=== PATIENT | female | born 1965 | race Caucasian/White ===

== ENCOUNTER 2016-09-18 16:00 | Emergency (ER) | payer SELFPAY ==
[~2016-09-18] VITALS: Ht 160 cm; Wt 60.5 kg
[~2016-09-18 16:00] MED LIST: ACET-1256 PO; DOXY100T17 PO; IBUP-103 PO
[2016-09-18 16:16] VITALS: TEMP 36.3; Ht 160 cm; Wt 60.5 kg
--- NOTE | 2016-09-18 17:16 | DIAGNOSTIC IMAGING REPORT ---
PELVIS/BILATERAL HIP 2 VIEWS CLINICAL HISTORY: B/L hip pain pain COMPARISON STUDY: None FINDINGS: Negative study IMPRESSION: Negative study The above report was generated using voice recognition software. It may contain grammatical, syntax or spelling errors. Electronically signed by: Jose E Wiseman M.D. 09/18/2016 5:15 PM Dictated Date/Time: 09/18/2016 5:14 PM
[2016-09-18] MEDS ORDERED: CYCL10TA6 PO (17:30)
[2016-09-18] MEDS ORDERED: PRED20TA2 PO (17:30)
[2016-09-18 17:45] VITALS: BP 118/71; PULSE 64; O2SAT 100
[2016-09-18] MEDS ORDERED: FLEXERIL HOME PACK 10 MG VIAL PO ONE (17:45)
--- NOTE | 2016-09-18 23:18 | EMERGENCY ROOM VISIT NOTE ---
History First contact with patient: 16:21 Chief Complaint: HIP PAIN Stated Complaint: B/L HIP PAIN History of Present Illness The patient is a 50 year old female who presents to the Emergency Room with complaints of bilateral hip pain worsening over the past few days. She does not recall injury or trauma. The patient has had symptoms like this before and is taking pxhq-ukf-egajhme ibuprofen without significant improvement of symptoms. She is able to ambulate. She is not having difficulty using the bathroom. No saddle paresthesias. She rates her discomfort a 6/10. Review of Systems More than 10 systems were reviewed and otherwise negative with the exception of history of present illness. Past Medical/Surgical History Medical Problems: (1) Fibromyalgia Family History No pertinent family history Social History Smoking Status: Current Every Day Smoker Housing Status: lives with family Occupation Status: employed Current/Historical Medications Scheduled Cyclobenzaprine Hcl (Flexeril), 10 MG PO TID Prednisone (Prednisone Tab), 2 TAB PO DAILY Scheduled PRN Acetaminophen (Tylenol), 1,000 MG PO Q6 PRN for Pain Ibuprofen Tab (Advil), 400 MG PO QID PRN for Pain Physical Exam Vital Signs Date Time Temp Pulse Resp B/P (MAP) Pulse Ox O2 Delivery O2 Flow Rate FiO2 09/18/16 17:45 64 16 118/71 100 09/18/16 16:16 36.3 76 18 131/64 98 Room Air Pain Rating (0-10): 9.0 Physical Exam VITALS: Vitals are noted on the nurse's note and reviewed by myself. Vital signs stable. GENERAL: Well-developed, well-nourished, white female, who is in no acute distress and resting comfortably. Patient is cooperative with the examination. HEAD: Normocephalic atraumatic. NECK: Supple without nuchal rigidity. No lymphadenopathy. No thyromegaly. Cervical spine is nontender. HEART: Regular rate and rhythm without murmurs gallops or rubs. LUNGS: Clear to auscultation bilaterally without wheezes, rales or rhonchi. No retractions or accessory muscle use. ABDOMEN: Positive normal bowel sounds x 4. Soft, nontender, without masses or organomegaly. No guarding or rebound tenderness. MUSCULOSKELETAL: No tenderness of the lumbar spine or paravertebral musculature. No SI joint tenderness. There is positive bilateral tenderness over the lateral hips without saddle paresthesias. Negative straight leg raise. No gross deformities or evidence of infection. NEURO: Patient was alert and oriented to person place and time. CN II through XII grossly intact. Medical Decision & Procedures ER Provider Diagnostic Interpretation: PELVIS/BILATERAL HIP 2 VIEWS CLINICAL HISTORY: B/L hip pain pain COMPARISON STUDY: None FINDINGS: Negative study IMPRESSION: Negative study Medications Administered Medications (Trade) Dose Ordered Sig/Srinivasa Route Start Time Stop Time Status Last Admin Dose Admin Cyclobenzaprine HCl (FLEXERIL 10MG Home Pack) 1 homepack UD ONCE PO 09/18/16 17:45 09/18/16 17:46 DC 09/18/16 17:44 1 HOMEPACK Prednisone (PredniSONE TAB) 40 mg NOW STAT PO 09/18/16 17:38 09/18/16 17:39 DC 09/18/16 17:44 40 MG ED Course Physical exam and history were performed. Nursing notes, EMR, and Medication List were personally reviewed. Patient appears to have bilateral hip pain for the past few days. Review of the EMR shows that she has had these symptoms for at least the past one year. She does have a history of fibromyalgia. X-ray was obtained and does not show acute findings. Overall the patient appears stable for discharge home. She will be treated conservatively with [id number]-[id number] analgesics, Flexeril, and prednisone. She is to follow with her primary care physician or with orthopedics for ongoing care and evaluation. She was otherwise invited back to the ER with any new, worsening, or concerning symptoms. The chart was completed utilizing [employer] Speech Voice Recognition Software. Grammatical errors, random word insertions, pronoun errors, and incomplete sentences are an occasional consequence of this system due to software limitations, ambient noise, and hardware issues. Any formal questions or concerns about the content, text, or information contained within the body of this dictation should be directly addressed to the provider for clarification. . Medical Decision Differential diagnoses includes, but is not limited to: Sprain, strain, fracture , dislocation, subluxation, contusion, bursitis, and others Medication Reconcilliation Current Medication List: was personally reviewed by me Blood Pressure Screening Patient's blood pressure: Normal blood pressure Impression Primary Impression: Hip pain, bilateral Departure Information Dispostion Home / Self-Care Condition GOOD Prescriptions Cyclobenzaprine Hcl (FLEXERIL) 10 Mg Tab 10 MG PO TID for 7 Days, #21 TAB Prov: Wilmar Wheat PA-C 09/18/16 Prednisone (Prednisone Tab) 20 Mg Tab 2 TAB PO DAILY for 5 Days, #10 TAB Prov: Wilmar Wheat PA-C 09/18/16 Forms HOME CARE DOCUMENTATION FORM, IMPORTANT VISIT INFORMATION Patient Instructions My [facility] Additional Instructions You were seen and evaluated today on an emergency basis only. This is not a substitute for, or an effort to provide, complete comprehensive medical care. It is not possible to recognize and treat all injuries or illnesses in a single emergency department visit. For this reason it is recommended that you followup with your primary care physician next week for ongoing care and evaluation. For baseline pain relief you may alternate ibuprofen and acetaminophen every 4 hours for pain control. Take 600 mg ibuprofen (Advil) and then 4 hours later take 1000 mg acetaminophen (Tylenol). Do not take more than 3000 mg acetaminophen in a single day. Take prednisone 40 mg daily for the next 5 days Flexeril 1 tablet up to 3 times a day as needed for muscle spasms. No driving, working, or alcohol use with Flexeril. You are welcome to return to the emergency department anytime with new, worsening, or concerning symptoms.
== END 2016-09-18 17:45 | disposition home or self-care (01) ==
LOC: C.EDB 16:01 → C.EDD 17:45
DX: M25.551 Pain in right hip (principal); M25.552 Pain in left hip; F17.200 Nicotine dependence, unspecified, uncomplicated

== ENCOUNTER 2017-04-08 15:40 | Emergency (ER) | payer SELFPAY ==
[~2017-04-08] VITALS: Ht 162.6 cm; Wt 58.7 kg
[~2017-04-08 15:40] MED LIST changes: -DOXY100T17 PO
[2017-04-08 15:43] VITALS: TEMP 37; Ht 162.6 cm; Wt 58.7 kg
[2017-04-08] MEDS ORDERED: ALBUT/IPRATROP 3MG/0.5MG NEB 3 ML VIAL INH STA (17:28)
[2017-04-08] MEDS ORDERED: PRED20TA PO (17:34)
[2017-04-08] MEDS ORDERED: BNT/10 PO (17:34)
[2017-04-08 17:44] VITALS: O2SAT 99
[2017-04-08] MEDS ORDERED: SODIUM CHLORIDE 0.9% 1000ML 1,000 ML IV STA (17:55)
--- NOTE | 2017-04-08 18:01 | EMERGENCY ROOM VISIT NOTE ---
History First contact with patient: 17:10 Chief Complaint: CARDIAC ASSESSMENT Stated Complaint: COUGHING, CHEST BURNING Nursing Triage Summary: pt reports cough since thursday morning and ever since. has chills. chest burning History of Present Illness The patient is a 51 year old female who presents to the Emergency Room with complaints of cough and burning in her chest for the past 4 days. The patient reports that she woke up 4 days ago with a cough. She has had a persistent and worsening cough since then. She reports she has a hard time sleeping due to the cough. She occasionally has dry heaves due to the cough. She reports a burning discomfort in her chest, throat and arms. She has bilateral earaches and a sore throat. She does report some shortness of breath. The patient has a history of COPD and is a smoker. She states that she does not have insurance and therefore does not have any medications to use for her breathing problems. She denies any nausea/vomiting, abdominal pain, headaches or fevers. The patient does note that she is a "TB carrier." She states that she has taken medication for this in the past and has had chest x-rays which were normal. She reports she has not been eating or drinking well due to her symptoms. She reports being around other sick people at work. Review of Systems A complete 10 point review of systems was reviewed with the patient with pertinent positives and negatives as per history of present illness. All else were negative. Past Medical/Surgical History Medical Problems: (1) COPD (chronic obstructive pulmonary disease) (2) Fibromyalgia Social History Smoking Status: Current Every Day Smoker Housing Status: lives with family Occupation Status: employed Current/Historical Medications Scheduled Azithromycin (Zithromax), 250 MG PO DAILY Dicyclomine HCl (Dicyclomine HCl), 1 CAP PO BID Prednisone (Prednisone), 1 TAB PO BID Prednisone (Prednisone Tab), 20 MG PO UD Physical Exam Vital Signs Date Time Temp Pulse Resp B/P (MAP) Pulse Ox O2 Delivery O2 Flow Rate FiO2 04/08/17 21:06 107 24 115/68 94 04/08/17 19:41 111 24 111/65 96 Room Air 04/08/17 19:10 116 20 120/64 96 Room Air 04/08/17 18:47 129 24 126/61 94 Room Air 04/08/17 17:56 116 20 119/66 94 Room Air 04/08/17 17:50 113 2/21/18 17:44 112 20 127/87 96 Room Air 04/08/17 17:44 99 Room Air 04/08/17 15:43 37.0 122 18 128/73 96 Room Air Physical Exam VITALS: Vitals are noted on the nurse's note and reviewed by myself. Vital signs stable. GENERAL: This is a 51-year-old female, in no acute distress, nondiaphoretic, well-developed well-nourished. SKIN: The skin was without rashes. EARS: External auditory canals clear. Tympanic membranes minimally injected bilaterally. EYES: Pupils equal round and reactive to light and accommodation. NOSE: Patent, turbinates without inflammation or discharge. No sinus tenderness. MOUTH: Mucous membranes moist. Tonsils are not enlarged. Oropharynx mildly erythematous. NECK: Supple without nuchal rigidity. No lymphadenopathy. HEART: Regular rate and rhythm without murmurs gallops or rubs. LUNGS: Clear to auscultation bilaterally without wheezes, rales or rhonchi. No retractions or accessory muscle use. NEURO: Patient was alert and oriented to person place and time. Medical Decision & Procedures ER Provider Diagnostic Interpretation: CHEST ONE VIEW PORTABLE FINDINGS: No pneumothorax. Suture material within the right lung apex. Emphysema. Mild diffuse interstitial thickening. The heart is normal in size. Suspect trace bilateral pleural effusions. Question small nodular density within the right midlung zone. This obscured by the overlapping cardiac lead. No focal lung consolidations to suggest pneumonia. IMPRESSION: 1. Trace bilateral pleural effusions. 2. Mild interstitial thickening which is slightly progressed. This could be chronic. 3. Possible small nodular density within the right midlung zone. This is obscured by the overlapping cardiac lead. Follow-up nonemergent PA and lateral views of the chest are recommended for further evaluation. 4. Emphysema. CT ANGIOGRAM OF THE CHEST IMPRESSION: 1. There is no evidence of pulmonary embolus in the main, lobar, or segmental pulmonary arteries. 2. Moderate to advanced emphysema. 3. Patchy airspace consolidation is seen in the right middle lobe, the right lower lobe, and in the left lower lobe. This likely represents an infectious/inflammatory pneumonitis, and also likely corresponds to the abnormality seen by chest x-ray. 3-6 month follow-up chest CT is recommended to document resolution. 4. No pleural effusion is identified. 5. Mildly enlarged mediastinal and hilar lymph nodes are likely on a reactive basis. These can also be reassessed at follow-up. Laboratory Results 04/08/17 17:40 Red Blood Count 4.49, Mean Corpuscular Volume 91.5, Mean Corpuscular Hemoglobin 31.8, Mean Corpuscular Hemoglobin Concent 34.8, Mean Platelet Volume 11.1, Neutrophils (%) (Auto) 82.2, Lymphocytes (%) (Auto) 8.8, Monocytes (%) (Auto) 8.3, Eosinophils (%) (Auto) 0.2, Basophils (%) (Auto) 0.3, Neutrophils # (Auto) 10.91, Lymphocytes # (Auto) 1.16, Monocytes # (Auto) 1.10, Eosinophils # (Auto) 0.02, Basophils # (Auto) 0.04 04/08/17 17:40 Test 04/08/17 17:40 04/08/17 17:42 White Blood Count 13.25 K/uL (4.8-10.8) Red Blood Count 4.49 M/uL (4.2-5.4) Hemoglobin 14.3 g/dL (12.0-16.0) Hematocrit 41.1 % (37-47) Mean Corpuscular Volume 91.5 fL (80-100) Mean Corpuscular Hemoglobin 31.8 pg (25-34) Mean Corpuscular Hemoglobin Concent 34.8 g/dl (32-36) Platelet Count 201 K/uL (130-400) Mean Platelet Volume 11.1 fL (7.4-10.4) Neutrophils (%) (Auto) 82.2 % Lymphocytes (%) (Auto) 8.8 % Monocytes (%) (Auto) 8.3 % Eosinophils (%) (Auto) 0.2 % Basophils (%) (Auto) 0.3 % Neutrophils # (Auto) 10.91 K/uL (1.4-6.5) Lymphocytes # (Auto) 1.16 K/uL (1.2-3.4) Monocytes # (Auto) 1.10 K/uL (0.11-0.59) Eosinophils # (Auto) 0.02 K/uL (0-0.5) Basophils # (Auto) 0.04 K/uL (0-0.2) RDW Standard Deviation 45.1 fL (36.4-46.3) RDW Coefficient of Variation 13.5 % (11.5-14.5) Immature Granulocyte % (Auto) 0.2 % Immature Granulocyte # (Auto) 0.02 K/uL (0.00-0.02) Platelet Estimate NORMAL Red Blood Cell Morphology Unremarkable Anion Gap 8.0 mmol/L (3-11) Est Creatinine Clear Calc Drug Dose 77.5 ml/min Estimated GFR () 107.7 Estimated GFR (Non- 92.9 BUN/Creatinine Ratio 8.5 (10-20) Calcium Level 9.0 mg/dl (8.5-10.1) Troponin I < 0.015 ng/ml (0-0.045) Influenza Type A Antigen Neg for Influ A (NEG) Influenza Type B Antigen Neg for Influ B (NEG) Medications Administered Medications (Trade) Dose Ordered Sig/Srniivasa Route Start Time Stop Time Status Last Admin Dose Admin Albuterol/ Ipratropium (Duoneb) 3 ml NOW STAT INH 04/08/17 17:28 04/08/17 17:32 DC 04/08/17 17:44 3 ML Sodium Chloride 1,000 ml @ 999 mls/hr Q1H1M STAT IV 04/08/17 17:55 04/08/17 18:55 DC 04/08/17 18:04 999 MLS/HR Hydrocodone Bit/ Homatropine Methylb (Hycodan Syrup) 10 ml NOW STAT PO 04/08/17 19:42 04/08/17 19:43 DC 04/08/17 19:48 10 ML Hydrocodone Bit/ Homatropine Methylb (Hycodan Elix Homepack 5/1.5MG/ 5ML) 1 homepack UD ONCE PO 04/08/17 20:45 04/08/17 20:46 DC 04/08/17 20:46 1 HOMEPACK Azithromycin (Zithromax Tab) 500 mg NOW STAT PO 04/08/17 20:31 04/08/17 20:32 DC 04/08/17 20:47 500 MG Prednisone (PredniSONE TAB) 60 mg NOW STAT PO 04/08/17 20:31 04/08/17 20:32 DC 04/08/17 20:47 60 MG Albuterol (Ventolin Hfa Inhaler) 2 puffs NOW ONCE INH 04/08/17 20:45 04/08/17 20:46 DC 04/08/17 20:48 2 PUFFS ECG Per My Interpretation Rate (beats per minute): 108 Rhythm: normal sinus Findings: no acute ischemic change, no ectopy Medical Decision Differential diagnosis includes influenza, pneumonia, upper respiratory infection, COPD exacerbation, among others. The patient is a 51-year-old female who presents today complaining of persistent cough. Labs revealed mild leukocytosis of 13,000. Labs were otherwise unremarkable. Influenza swab was negative. Chest x-ray showed no obvious infiltrate. Given the patient's persistent tachycardia and smoking history, I was concerned about possibility of pulmonary embolism. CTA of the chest was performed and read by radiology with no evidence of pulmonary embolism. However, there were findings consistent with an infectious or inflammatory pneumonitis. Patient will be placed on antibiotics and steroid. She was given a Ventolin inhaler. She was encouraged to follow-up with primary care provider. She was treated symptomatically with DuoNeb, Hycodan and fluids in the ER. She was still slightly tachycardic on discharge, however her heart rate had improved significantly throughout her stay. She was encouraged to stay well-hydrated and take Tylenol and ibuprofen as needed for any pain/fevers. Based on the patient's presentation and work up, I feel the patient is stable for outpatient treatment. The patient was educated to return to the emergency department for any worsening of their current condition or new/concerning symptoms. She will follow up with her primary care provider. Medication Reconcilliation Current Medication List: was personally reviewed by me Blood Pressure Screening Patient's blood pressure: Normal blood pressure Impression Primary Impression: Pneumonitis Departure Information Dispostion Home / Self-Care Condition GOOD Prescriptions Prednisone (Prednisone Tab) 20 Mg Tab 20 MG PO UD, #10 TAB 3 tabs 1 day, 2 tabs 2 days, 1 tab 2 days, one half tab 2 days. Prov: Elle Patel PA-C 04/08/17 Azithromycin (Zithromax) 250 Mg Tab 250 MG PO DAILY for 4 Days, #4 TAB Prov: Elle Patel PA-C 04/08/17 Referrals No Doctor, Assigned (PCP) Patient Instructions My [facility] Additional Instructions You have been prescribed Prednisone. This is a steroid which will help decrease your inflammation. Take this medicine as prescribed. It is best to take steroids early in the morning as PM dosing can affect your sleeping patterns. You were prescribed Zithromax to be taken as prescribed. This is an antibiotic. All antibiotics have the potential to cause diarrhea. Stop this medication and contact a medical provider if you were to develop any significant adverse side effects including: wheezing, shortness of breath, passing out, vomiting, or a diffuse rash. Always take antibiotics as directed and COMPLETE the ENTIRE course regardless of the improvement of your symptoms. For pain control, you can use the following mkao-awj-kznfxmy medicines (if >12 yo): - Regular strength (325mg/tab) Tylenol (acetaminophen) 2 tabs every 4-6 hours as needed. Do not exceed 12 tablets in a 24 hour period. Avoid taking more than 4 grams (4000 mg) of Tylenol per day. This includes any other sources of acetaminophen you may take on a regular basis. - Regular strength (200 mg/tab) Advil (ibuprofen) 1-2 tabs every 4-6 hours as needed. Do not exceed a dose of 3200 mg per day. Rest and drink plenty of fluids. Use the Ventolin inhaler as needed for cough/shortness of breath. Take the Hycodan cough syrup as needed for severe cough. Be aware that this may make you drowsy. You should not drive or drink alcohol while taking this medication. Follow-up with a primary care provider within 1 week for recheck. Return to the emergency department with worsening shortness of breath, high fevers not controlled by Tylenol or ibuprofen, or any other new/concerning symptoms.
--- NOTE | 2017-04-08 18:05 | DIAGNOSTIC IMAGING REPORT ---
CHEST ONE VIEW PORTABLE HISTORY: cough COMPARISON: Chest 06/09/2013. FINDINGS: No pneumothorax. Suture material within the right lung apex. Emphysema. Mild diffuse interstitial thickening. The heart is normal in size. Suspect trace bilateral pleural effusions. Question small nodular density within the right midlung zone. This obscured by the overlapping cardiac lead. No focal lung consolidations to suggest pneumonia. IMPRESSION: 1. Trace bilateral pleural effusions. 2. Mild interstitial thickening which is slightly progressed. This could be chronic. 3. Possible small nodular density within the right midlung zone. This is obscured by the overlapping cardiac lead. Follow-up nonemergent PA and lateral views of the chest are recommended for further evaluation. 4. Emphysema. Electronically signed by: Orlando Ayers M.D. 04/08/2017 6:03 PM Dictated Date/Time: 04/08/2017 5:59 PM
[2017-04-08 18:21] LABS: BLOOD UREA NITROGEN 6 mg/dl (7-18); CARBON DIOXIDE 23 mmol/L (21-32); CREATININE 0.75 mg/dl (0.60-1.20); GLUCOSE 100 mg/dl (70-99); SODIUM 135 mmol/L (136-145)
[2017-04-08 18:26] LABS: INFLUENZA B ANTIGEN Neg for Influ B (NEG)
[2017-04-08 18:32] LABS: HEMATOCRIT 41.1 % (37-47); HEMOGLOBIN 14.3 g/dL (12.0-16.0); MEAN CELL VOLUME 91.5 fL (80-100); MEAN CORPUSCULAR HEMOGLOBIN 31.8 pg (25-34); MEAN CORPUSCULAR HGB CONC 34.8 g/dl (32-36); MEAN PLATELET VOLUME 11.1 fL (7.4-10.4); PLATELET COUNT 201 K/uL (130-400); RED CELL DISTRIBUTION WIDTH CV 13.5 % (11.5-14.5); RED CELL DISTRIBUTION WIDTH SD 45.1 fL (36.4-46.3); WHITE BLOOD COUNT 13.25 K/uL (4.8-10.8)
[2017-04-08 18:33] LABS: BASO % 0.3 %; BASO ABS # 0.04 K/uL (0-0.2); EOS % 0.2 %; EOS ABS # 0.02 K/uL (0-0.5); IG# 0.02 K/uL (0.00-0.02); LYMPH % 8.8 %; LYMPH ABS # 1.16 K/uL (1.2-3.4); MONO % 8.3 %; NEUT % 82.2 %; NEUT ABS # 10.91 K/uL (1.4-6.5)
[2017-04-08] MEDS ORDERED: OPTIRAY 320 IV PRN (18:45)
--- NOTE | 2017-04-08 19:04 | DIAGNOSTIC IMAGING REPORT ---
CT ANGIOGRAM OF THE CHEST CLINICAL HISTORY: Atypical chest pain. Dyspnea. COMPARISON STUDY: Chest x-ray dated 03/10/2008. Chest x-ray dated 04/08/2017. TECHNIQUE: Following the IV administration of 93 cc of Optiray 320, CT angiogram of the chest was performed from the upper abdomen to the thoracic inlet utilizing the pulmonary embolus protocol. Images are reviewed in the axial, sagittal, and coronal planes. 3-D MIPS images are created and assessed. IV contrast was administered without complication. A dose lowering technique was utilized adhering to the principles of ALARA. The examination is modestly degraded by motion artifact. CT DOSE: 197.97 mGy.cm FINDINGS: Thyroid: Imaged portions of the thyroid gland are normal in size and attenuation. Thoracic aorta: There is atherosclerotic calcification of the thoracic aorta, which is normal in caliber and demonstrates bovine variant arch anatomy. No dissection is seen. Pulmonary vasculature: The pulmonary trunk is normal in caliber. There are no filling defects identified in main, lobar, or segmental pulmonary branches to suggest pulmonary embolus. Heart: The heart is normal in size and without pericardial effusion. Lungs and pleural spaces: Moderate to advanced emphysematous change is identified. The trachea and central airways are clear. There is patchy airspace consolidation identified in the right middle and right lower lobes. Minimal patchy consolidative changes also seen in the left lower lobe. The appearance suggests an infectious/inflammatory pneumonitis. No pleural effusion is identified. Mediastinum: There are mildly enlarged mediastinal lymph nodes. An AP window node on image #199 measures 1.2 cm in short axis. Rhianna: There are enlarged right hilar nodes. These measure up to 10 mm in short axis. No left hilar adenopathy is seen. Axillae: There is no axillary lymphadenopathy. Upper abdomen: Partially visualized upper abdominal viscera is within normal limits. Skeletal structures: No lytic or blastic bony lesions are seen. IMPRESSION: 1. There is no evidence of pulmonary embolus in the main, lobar, or segmental pulmonary arteries. 2. Moderate to advanced emphysema. 3. Patchy airspace consolidation is seen in the right middle lobe, the right lower lobe, and in the left lower lobe. This likely represents an infectious/inflammatory pneumonitis, and also likely corresponds to the abnormality seen by chest x-ray. 3-6 month follow-up chest CT is recommended to document resolution. 4. No pleural effusion is identified. 5. Mildly enlarged mediastinal and hilar lymph nodes are likely on a reactive basis. These can also be reassessed at follow-up. Electronically signed by: Felton Ruiz M.D. 04/08/2017 7:03 PM Dictated Date/Time: 04/08/2017 6:57 PM
[2017-04-08] MEDS ORDERED: HYDROCODONE/HOMATROPINE SYRUP 5MG/1.5MG 5ML UDP PO STA (19:42)
[2017-04-08] MEDS ORDERED: AZITHROMYCIN 250 MG TAB PO STA (20:31)
[2017-04-08] MEDS ORDERED: AZIT250T PO (20:43)
[2017-04-08] MEDS ORDERED: PRED20TA2 PO (20:43)
[2017-04-08] MEDS ORDERED: ALBUTEROL HFA 8 GM INHALER INH ONE (20:45)
[2017-04-08] MEDS ORDERED: HYCODAN 60ML BOTTLE HOMEPACK PO ONE (20:45)
[2017-04-08 21:06] VITALS: BP 115/68; PULSE 107; O2SAT 94
== END 2017-04-08 21:04 | disposition home or self-care (01) ==
LOC: C.EDB 15:42 → C.EDC 21:04
DX: J44.0 Chronic obstructive pulmonary disease with (acute) lower respiratory infection (principal); J18.9 Pneumonia, unspecified organism; M79.7 Fibromyalgia; F17.200 Nicotine dependence, unspecified, uncomplicated

== ENCOUNTER → 2017-09-30 | Outpatient (CLI) | payer OTHER ==
[~2017-09-30] MED LIST changes: -ACET-1256 PO; +BNT/10 PO; -IBUP-103 PO; +PRED20TA PO; +PRED20TA2 PO
--- NOTE | 2017-10-01 15:40 | MAMMOGRAPHY REPORT ---
BILATERAL DIGITAL DIAGNOSTIC MAMMOGRAM TOMOSYNTHESIS WITH CAD AND TARGETED LEFT ULTRASOUND: 09/30/2017 CLINICAL HISTORY: 51-year-old woman presents for diagnostic evaluation of both breasts. She is late f or follow-up of previously recommended close follow-up evaluation for bilateral clusters of microcalc ifications. She had a history of prior benign right breast stereotactic biopsy. Also more recently th e patient is describing new left nipple flattening/inversion. One possible episode of nipple discharg e. No palpable lumps or skin changes. TECHNIQUE: Bilateral CC and MLO 2D and tomosynthesis images, spot magnification CC and ML views of ea ch breast were obtained. Current study was also evaluated with a Computer Aided Detection (CAD) syst em. COMPARISON: Comparison is made to exams dated: 01/25/2015 mammogram and 01/10/2015 mammogram - [facility]. BREAST COMPOSITION: The tissue of both breasts is heterogeneously dense, which may obscure small mass es. FINDINGS: There have been mild involutional changes comparing to prior available mammograms. There i s a stable dumbbell-shaped biopsy marker clip in the upper outer quadrant of the right breast. Decre ased focal asymmetry in the upper outer posterior left breast. The spot magnification views of both breasts redemonstrate several scattered bilateral clusters of benign-appearing punctate and amorphous microcalcifications, that are stable comparing back to spot magnification views from 2013 and 2014. Given greater than 2 years of stability these additional non-biopsied clusters of calcifications are considered benign. No new suspicious calcifications identified bilaterally. No obvious new mammogr aphic masses, asymmetries or areas of distortion. No mammographic evidence of left nipple retraction or retroareolar mass. On visual inspection, the left nipple is flat comparing to the right nipple. Targeted ultrasound was performed directly over the left nipple and in the periareolar/subareolar left breast. No abnormali ty is identified within the nipple. In the 12:00 periareolar left breast, there is a round isoechoic to hypoechoic circumscribed mass measuring 4.0 x 3.4 x 4.1 mm. There is an isoechoic mass with vanda cent anechoic tubular structure possibly representing an intraductal mass in the 9:00 periareolar lef t breast measuring 2.6 x 2.3 x 4.0 mm. These masses could represent papillomas or complicated cysts. They are indeterminate and definitive characterization with ultrasound-guided core biopsy 2 in the left breast is recommended. Pending pathology results from the left breast biopsies, surgical consultation may be warranted for t he left nipple inversion. IMPRESSION: ACR BI-RADS CATEGORY 4: SUSPICIOUS, ULTRASOUND ACR BI-RADS CATEGORY 4: SUSPICIOUS 1. Bilateral clusters of punctate and amorphous microcalcifications in both breasts are stable datin g back to the 2014 and 2015 mammograms and are now considered benign given long-term stability. 2. The patient reports new left nipple flattening/inversion for which no mammographic or sonographic mass was seen to be causing the nipple inversion. 3. Incidentally identified on ultrasound in the 9:00 and 12:00 axes of the left breast are subcentim eter solid-appearing masses for which left breast ultrasound-guided core biopsy 2 is recommended. 4. Pending pathology results from the left breast biopsies, surgical consultation may still be warra nted for the left nipple inversion to exclude the possibility of Paget's. These results and recommendations were discussed with the patient at the time of the exam. Some breast cancers are not detected with mammography. A negative mammographic report should not julia y biopsy if a clinically suggestive mass is present. Kamryn Flanagan M.D. ay/:09/30/2017 17:16:12 Application Support Manager: RT Wisam(Anup)(M), [facility]; [facility] letter sent: Abnormal 4/5 OVERALL STUDY BIRADS: 4 Suspicious abnormality
== END | disposition home or self-care (01) ==
LOC: C.MAMM 12:31
PROVIDERS: ATTEND Obstetrics & Gynecology
DX: R92.0 Mammographic microcalcification found on diagnostic imaging of breast (principal); N63.20 Unspecified lump in the left breast, unspecified quadrant; N64.59 Other signs and symptoms in breast